=== PATIENT | female | born 1980 | race American Indian/Alaskan Native ===

== ENCOUNTER 2017-12-02 18:49 | Emergency (ER) | payer SELFPAY ==
[2017-12-02] MEDS ORDERED: CATAPRES PO ONE (19:51)
--- NOTE | 2017-12-02 20:20 | Emergency Department Report ---
ED General Adult HPI - General Chief complaint: Extremity Problem,Nontraumatic Stated complaint: BP/BLOOD SUGAR HIGH Time Seen by Provider: 12/02/17 19:27 Source: patient Mode of arrival: Ambulatory Limitations: No Limitations - History of Present Illness Initial comments: Patient is a 37-year-old female who has been out of her blood pressure medicines diabetes medicines for approximately a month and a 2:30 months. Patient states that her main issue currently is that her legs for the last month have been having edema that goes down and at night but accumulates throughout the day this started to be tender. Patient denies any chest pain shortness of breath at this time. The patient states she doesn't have a primary doctor the last blood pressure medicine she had was given from the emergency department. Radiation: extremity Severity scale (0 -10): 6 Quality: burning, aching Associated Symptoms: denies: chest pain, cough, diaphoresis, fever/chills, headaches, loss of appetite, malaise, nausea/vomiting, rash, shortness of breath , syncope, weakness - Related Data Previous Rx's Medication Instructions Recorded Last Taken Type Amlodipine Besylate [Norvasc] 10 mg PO DAILY #30 tablet 12/02/17 Unknown Rx Hydrochlorothiazide [HCTZ] 25 mg PO QDAY #30 tablet 12/02/17 Unknown Rx glipiZIDE [Glucotrol Xl] 5 mg PO DAILY #30 tab.er.24 12/02/17 Unknown Rx Allergies Allergy/AdvReac Type Severity Reaction Status Date / Time No Known Allergies Allergy Unverified 12/02/17 19:04 ED Review of Systems ROS: Stated complaint: BP/BLOOD SUGAR HIGH Other details as noted in HPI Comment: All other systems reviewed and negative ED Past Medical Hx - Past Medical History Hx Hypertension: Yes Hx Diabetes: Yes - Surgical History Additional Surgical History: c sect x 2, right hand repair - Social History Smoking Status: Never Smoker Substance Use Type: None - Medications Home Medications: Home Medications Medication Instructions Recorded Confirmed Last Taken Type Amlodipine Besylate [Norvasc] 10 mg PO DAILY #30 tablet 12/02/17 Unknown Rx Hydrochlorothiazide [HCTZ] 25 mg PO QDAY #30 tablet 12/02/17 Unknown Rx glipiZIDE [Glucotrol Xl] 5 mg PO DAILY #30 tab.er.24 12/02/17 Unknown Rx ED Physical Exam - General Limitations: No Limitations General appearance: alert, in no apparent distress - Head Head exam: Present: atraumatic, normocephalic - Eye Eye exam: Present: normal appearance - ENT ENT exam: Present: mucous membranes moist - Neck Neck exam: Present: normal inspection - Respiratory Respiratory exam: Present: normal lung sounds bilaterally. Absent: respiratory distress, wheezes, rales, rhonchi - Cardiovascular Cardiovascular Exam: Present: regular rate, normal rhythm. Absent: systolic murmur, diastolic murmur, rubs, gallop - GI/Abdominal GI/Abdominal exam: Present: soft, normal bowel sounds. Absent: distended, tenderness, guarding, rebound - Extremities Exam Extremities exam: Present: normal inspection, pedal edema, joint swelling - Back Exam Back exam: Present: normal inspection - Neurological Exam Neurological exam: Present: alert, oriented X3 - Psychiatric Psychiatric exam: Present: normal affect, normal mood - Skin Skin exam: Present: warm, dry, intact, normal color. Absent: rash ED Course Vital Signs 12/02/17 12/02/17 19:05 19:59 Temperature 98 F Pulse Rate 98 H 86 Respiratory 16 Rate Blood Pressure 201/92 186/97 O2 Sat by Pulse 98 Oximetry ED Medical Decision Making - Medical Decision Making Patient be restarted on her hydrochlorothiazide and Norvasc as well as glipizide 5 mg and she will be given follow-up with some Critical care attestation.: If time is entered above; I have spent that time in minutes in the direct care of this critically ill patient, excluding procedure time. ED Disposition Clinical Impression: Hypertensive urgency, Dependent edema, Hyperglycemia Disposition: DC-01 TO HOME OR SELFCARE Is pt being admited?: No Does the pt Need Aspirin: No Condition: Fair Instructions: Chronic Hypertension (ED), Leg Edema (ED), Diabetic Hyperglycemia (ED) Prescriptions: Amlodipine Besylate [Norvasc] 10 mg PO DAILY #30 tablet glipiZIDE [Glucotrol Xl] 5 mg PO DAILY #30 tab.er.24 Hydrochlorothiazide [HCTZ] 25 mg PO QDAY #30 tablet Referrals: PAULA SOLIS MD [Primary Care Provider] - 3-5 Days
[2017-12-02 20:38] VITALS: BP 176/88
== END 2017-12-02 20:39 | disposition home or self-care (01) ==
LOC: ED 18:49
DX: E11.65 Type 2 diabetes mellitus with hyperglycemia (principal); I16.0 Hypertensive urgency; R60.0 Localized edema; I10 Essential (primary) hypertension
CPT/HCPCS: 82962; 99282